=== PATIENT | male | born 1990 | race Caucasian/White ===

== ENCOUNTER 2018-03-07 14:24 | Emergency (ER) | payer SELFPAY, OTHER | END 2018-03-07 16:11 | disposition home or self-care (01) | LOC: FTE 14:24 | DX: N48.1 Balanitis (principal); Z21 Asymptomatic human immunodeficiency virus [HIV] infection status | CPT/HCPCS: 87591; 99283 ==

== ENCOUNTER 2018-12-18 20:45 | Emergency (ER) | payer SELFPAY ==
[2018-12-18] MEDS: FLUCONAZOLE 150 MG TAB PO (21:47)
[2018-12-18 22:32] LABS: ADD UMIC NO; UR ASCORBIC ACID NEGATIVE (NEGATIVE); UR BILIRUBIN (Dip) NEGATIVE (NEGATIVE); UR BLOOD (Dip) NEGATIVE (NEGATIVE); UR CLARITY CLEAR (CLEAR); UR COLOR YELLOW (YELLOW); UR GLUCOSE (Dip) NEGATIVE (NEGATIVE); UR KETONES (Dip) NEGATIVE (NEGATIVE); UR LEUKOCYTE ESTERASE (Dip) NEGATIVE Leu/ul (NEGATIVE); UR NITRITE (Dip) NEGATIVE (NEGATIVE); UR SPECIFIC GRAVITY (Dip) 1.004 (1.003-1.030); UR TOTAL PROTEIN (Dip) NEGATIVE (NEGATIVE); UR UROBILINOGEN (Dip) NEGATIVE (NEGATIVE)
== END 2018-12-18 23:50 | disposition home or self-care (01) ==
LOC: FTE 23:50
DX: N48.1 Balanitis (principal)
CPT/HCPCS: 81003; 87086; 87591; 99283

== ENCOUNTER 2019-01-29 23:48 | Emergency (ER) | payer OTHER ==
[2019-01-30] MEDS: IBUPROFEN 800 MG TAB PO (00:46)
== END 2019-01-30 01:25 | disposition home or self-care (01) ==
LOC: E/R 23:48
DX: T63.304A Toxic effect of unspecified spider venom, undetermined, initial encounter (principal); R07.9 Chest pain, unspecified; R40.2122 Coma scale, eyes open, to pain, at arrival to emergency department; R40.2362 Coma scale, best motor response, obeys commands, at arrival to emergency department; R40.2252 Coma scale, best verbal response, oriented, at arrival to emergency department; Z87.891 Personal history of nicotine dependence; Z21 Asymptomatic human immunodeficiency virus [HIV] infection status
CPT/HCPCS: 71045; 93005; 99284-25